=== PATIENT | female | born 1955 | race Caucasian/White ===

== ENCOUNTER → 2017-01-04 | Outpatient (CLI) | payer MEDICAID | END | disposition home or self-care (01) | LOC: LABWHC1 13:09 | PROVIDERS: ATTEND Family Medicine | DX: E03.9 Hypothyroidism, unspecified (principal) | CPT/HCPCS: 36415; 84439; 84443; 84481 ==

== ENCOUNTER → 2017-02-10 | Outpatient (CLI) | payer MEDICAID ==
[2017-02-10 12:16] LABS: Cholesterol 225 mg/dL (<200); Glucose 131 mg/dL (74-99); HDL Cholesterol 43 mg/dL (40-60); Triglycerides 191 mg/dL (<150)
[2017-02-10 13:04] LABS: Hepatitis C Virus IgG Index 0.01
[2017-02-10 13:10] LABS: Hepatitis C Virus IgG Ab Negative (Negative)
== END ==
LOC: LABWHC1 11:20
PROVIDERS: ATTEND Family Medicine
DX: E88.81 Metabolic syndrome and other insulin resistance (principal); Z13.9 Encounter for screening, unspecified
CPT/HCPCS: 36415; 80061; 82947; 86803

== ENCOUNTER → 2018-08-10 | Outpatient (CLI) | payer MEDICAID ==
[2018-08-10 10:05] LABS: HGB 15.3 gm/dL (11.4-16.0); MCH 30.3 pg (25.0-35.0); MCHC 33.3 g/dL (31.0-37.0); MCV 91.1 fL (80.0-100.0); Platelet Count 327 k/uL (150-450); RBC 5.05 m/uL (3.80-5.40); WBC 7.9 k/uL (3.8-10.6)
[2018-08-10 10:16] LABS: Appearance,Urine Cloudy (Clear); Bacteria,Urine Many /hpf; Bilirubin,Urine Negative (Negative); Blood,Urine Negative (Negative); Color,Urine Yellow; Glucose,Urine (UA) Negative (Negative); Ketones,Urine Negative (Negative); Leukocyte Esterase,Urine Large (Negative); Mucus,Urine Occasional /hpf; Nitrite,Urine Negative (Negative); Protein,Urine Trace (Negative); Squamous Epithelial Cell,Urine 33 /hpf (0-4); WBC,Urine 123 /hpf (0-5)
[2018-08-10 10:30] LABS: ALT 40 U/L (9-52); AST 24 U/L (14-36); Albumin 3.7 g/dL (3.5-5.0); Alkaline Phosphatase 87 U/L (38-126); Anion Gap 9 mmol/L; Blood Urea Nitrogen 15 mg/dL (7-17); Calcium 9.2 mg/dL (8.4-10.2); Carbon Dioxide 24 mmol/L (22-30); Chloride 106 mmol/L (98-107); Cholesterol 196 mg/dL (<200); Glucose 102 mg/dL (74-99); HDL Cholesterol 47 mg/dL (40-60); LDL Cholesterol,Calculated 111 mg/dL (0-99); Potassium 4.3 mmol/L (3.5-5.1); Sodium 139 mmol/L (137-145); Total Bilirubin 0.5 mg/dL (0.2-1.3); Total Protein 6.5 g/dL (6.3-8.2); Triglycerides 192 mg/dL (<150)
[2018-08-10 10:46] LABS: T4, Free (Free Thyroxine) 1.16 ng/dL (0.78-2.19)
== END ==
LOC: LABWHC1 09:18
PROVIDERS: ATTEND Family Medicine
DX: Z00.00 Encounter for general adult medical examination without abnormal findings (principal); E03.9 Hypothyroidism, unspecified
CPT/HCPCS: 36415; 80053; 80061; 81001; 84439; 84443; 84481; 85027

== ENCOUNTER → 2018-10-29 | Outpatient (CLI) | payer MEDICAID ==
[2018-10-29 16:39] LABS: ALT 40 U/L (8-44); AST 29 U/L (13-35)
== END | disposition home or self-care (01) ==
LOC: LABWHC1 10:15
PROVIDERS: ATTEND Family Medicine
DX: B35.1 Tinea unguium (principal)
CPT/HCPCS: 36415; 84450; 84460

== ENCOUNTER → 2019-01-29 | Outpatient (CLI) | payer OTHER ==
--- NOTE | 2019-01-29 11:07 | XR ---
EXAMINATION TYPE: XR knee complete LT DATE OF EXAM: 01/29/2019 CLINICAL HISTORY: Twisting injury 2 days ago with pain. TECHNIQUE: Three views of the left knee are obtained. COMPARISON: None. FINDINGS: There is no acute fracture/dislocation evident in left knee. There is moderate narrowing a nd spurring medial tibiofemoral compartment. Tibial condylar spurring is present. There is mild narro wing and spurring patellofemoral compartment. Increased density suprapatellar bursa suspicious for sm all joint effusion. IMPRESSION: There is no acute fracture or dislocation in the left knee.
== END | disposition home or self-care (01) ==
LOC: RADXRMAIN 10:35
PROVIDERS: ATTEND Emergency Medicine
DX: S83.92XA Sprain of unspecified site of left knee, initial encounter (principal)

== ENCOUNTER → 2019-02-26 | Outpatient (CLI) | payer OTHER ==
--- NOTE | 2019-02-26 22:39 | MR ---
EXAMINATION TYPE: MR knee LT wo con DATE OF EXAM: 02/26/2019 COMPARISON: Left knee x-ray January 29, 2019. HISTORY: Lt knee sprain or twisting injury a few weeks ago with persistent pain TECHNIQUE: Multiplanar, multisequence images of the knee is performed without IV contrast. FINDINGS: MEDIAL MENISCUS: Anterior horn is intact without tear. Deep aspect posterior horn shows fraying with abnormal signal consistent with full-thickness tear sagittal image 21. Medial protrusion medial menis cus is seen on coronal images. LATERAL MENISCUS: Anterior and posterior horns are intact without tear. CRUCIATE LIGAMENTS: The anterior and posterior cruciate ligaments are intact and unremarkable. COLLATERAL LIGAMENTS: The medial collateral ligament and lateral collateral ligament complex are inta ct. Mild increased fluid signal surrounds the collateral ligament. EXTENSOR MECHANISM: Visualized quadriceps and patellar tendons are intact. EFFUSION: There is small to moderate size suprapatellar joint effusion. POPLITEAL CYST: No popliteal/locke cyst. TRICOMPARTMENT SPACES: Mild/moderate tricompartment degenerative changes with joint space loss and sp urring is seen most prominent medial tibiofemoral and patellofemoral compartments. CARTILAGE: There is chondromalacia patella with thinning of articular cartilage along the inferior po sterior patellar pole. There is cartilaginous loss medial tibiofemoral compartment. BONE MARROW SIGNAL: No focal abnormal marrow signal is appreciated. OTHER: No additional significant abnormality is appreciated. IMPRESSION: 1. Full-thickness tear posterior horn of medial meniscus. 2. Mild MCL sprain. 3. Small to moderate-sized suprapatellar joint effusion. 4. Fairly moderate tricompartment osteoarthritic changes as detailed above.
== END | disposition home or self-care (01) ==
LOC: RADMRIMAIN 18:07
PROVIDERS: ATTEND Emergency Medicine
DX: S83.242A Other tear of medial meniscus, current injury, left knee, initial encounter (principal); S83.412A Sprain of medial collateral ligament of left knee, initial encounter; M17.12 Unilateral primary osteoarthritis, left knee

== ENCOUNTER → 2019-03-06 | Outpatient (CLI) | payer MEDICAID ==
[2019-03-06 12:24] LABS: Basophils # (A) 0.1 k/uL (0-0.2); Basophils % (A) 1 %; Eosinophils # (A) 0.1 k/uL (0-0.7); Eosinophils % (A) 1 %; HCT 46.6 % (34.0-46.0); HGB 15.3 gm/dL (11.4-16.0); Lymphocytes # (A) 2.1 k/uL (1.0-4.8); Lymphocytes % (A) 25 %; MCH 29.2 pg (25.0-35.0); MCHC 32.8 g/dL (31.0-37.0); MCV 88.9 fL (80.0-100.0); Mean Platelet Volume 6.9; Monocytes # (A) 0.5 k/uL (0-1.0); Monocytes % (A) 6 %; Neutrophils # (A) 5.3 k/uL (1.3-7.7); Neutrophils % (A) 64 %; Platelet Count 311 k/uL (150-450); RBC 5.24 m/uL (3.80-5.40); RDW 14.6 % (11.5-15.5); WBC 8.2 k/uL (3.8-10.6)
[2019-03-06 12:37] LABS: Potassium 4.3 mmol/L (3.5-5.1)
== END | disposition home or self-care (01) ==
LOC: LABPAT 11:09
PROVIDERS: ATTEND Orthopaedic Surgery
DX: Z01.818 Encounter for other preprocedural examination (principal); Z01.812 Encounter for preprocedural laboratory examination; M23.92 Unspecified internal derangement of left knee
CPT/HCPCS: 80051; 85025; 93005

== ENCOUNTER 2019-03-20 12:32 | Day surgery (SDC) | payer MEDICAID, OTHER ==
[2019-03-19 11:27] VITALS: BMI 42.2
--- NOTE | 2019-03-19 16:20 | HP ---
HISTORY AND PHYSICAL DATE OF SURGERY: 03/20/2019 Aura Horne is a 64-year-old patient seen with progressive left knee pain. We discussed treatment options. She elected to proceed with left knee arthroscopy. Consent was obtained. PAST MEDICAL HISTORY: Hypothyroidism, hypertension. PAST SURGICAL HISTORY: 1. Tubal ligation. 2. Cholecystectomy. 3. Hysterectomy. 4. Left knee arthroscopy. DAILY MEDICATIONS: Hydrochlorothiazide, levothyroxine. ALLERGIES: PENICILLIN, LATEX. SOCIAL HISTORY: She denies tobacco use. PHYSICAL EVALUATION OF THE LEFT KNEE: Range of motion is 0 to 130 degrees. Mild effusion present. Tenderness along medial joint line. Positive medial Gianni's. Ligaments stable. Hip rotation without pain. Distal neurovascular exam intact. LEFT KNEE RADIOGRAPHS: Left knee radiographs revealed moderate osteoarthritic changes. Left knee MRI revealed medial meniscal tear and osteoarthritis. IMPRESSION: 1. Internal derangement, left knee, with medial meniscal tear. 2. Left knee osteoarthritis. PLAN: Left knee arthroscopy with partial meniscectomy and debridement. MMODL / IJN: [id number] /
[~2019-03-20 12:32] MED LIST: DEXAMETHASONE SOD PHOSPHATE 10 MG/ML 1 ML VIAL IV ONE; LACTATED RINGERS 1,000 ML IV SCH; LIDOCAINE 1% 20 ML VIAL (10MG/ML) FOR IV START INTRADERMA PRN; MIDAZOLAM 2 MG/2 ML VIAL IV PRN; SCOPOLAMINE 1.5MG/72HR PATCH TRANSDERM ONE; ceFAZolin IN SWFI 2 GM/20 ML SYRINGE IVP ONE
[2019-03-20 13:07] VITALS: RESP 16
[2019-03-20] MEDS: ONDANSETRON 4 MG/2 ML VIAL IVP ONE ×2 (13:20→14:41)
[2019-03-20] MEDS ORDERED: LIDOCAINE 1% INJ 10MG/ML (20 ML MDV) ONE (13:34)
[2019-03-20] MEDS ORDERED: KETOROLAC 30 MG/ML 1 ML VIAL ONE (13:34)
[2019-03-20] MEDS ORDERED: MIDAZOLAM 2 MG/2 ML VIAL ONE (13:34)
[2019-03-20] MEDS ORDERED: fentaNYL (PF) 50 MCG/ML 2 ML AMP ONE (13:34)
[2019-03-20] MEDS ORDERED: PROPOFOL 10 MG/ML 20 ML VIAL IV ONE (13:34)
[2019-03-20] MEDS ORDERED: BUPIVACAINE-EPI 0.5%-1:200,000 10 ML VIAL INTRAARTIC ONE (13:59)
[2019-03-20 14:31] VITALS: TEMP 97.4
--- NOTE | 2019-03-20 14:35 | P.OP ---
Date of Procedure: 03/20/19 Preoperative Diagnosis: Internal derangement left knee Postoperative Diagnosis: 1. Tear medial meniscus left knee 2. Grade 4 chondromalacia medial femoral condyle left knee 3. Reactive synovitis medial, lateral and suprapatellar compartments left knee Procedure(s) Performed: 1. Arthroscopic partial medial meniscectomy left knee 2. Arthroscopic microfracture medial femoral condyle left knee 3. Arthroscopic partial synovectomy medial, lateral and suprapatellar compartments left knee Anesthesia: GETA, local Surgeon: Kiran Martínez Estimated Blood Loss (ml): 7 Pathology: none sent Condition: stable Disposition: PACU Indications for Procedure: 64-year-old patient seen with progressive left knee pain. After having treatment options discussed, she elected to proceed with arthroscopy. Operative Findings: See description of procedure Description of Procedure: Patient was taken to the operative suite. Patient underwent a general anesthetic by the department of anesthesia. Patient was given preoperative antibiotics. The left lower extremity was placed in a well-padded arthroscopic leg graves. The left leg was prepped and draped in the normal sterile orthopedic fashion. A lateral parapatellar and suprapatellar incision was made. Trochars were inserted. Arthroscopy was initiated. Suprapatellar pouch revealed diffuse thick reactive synovitis. The patellofemoral joint appeared to articulate congruently. There was grade 1/2 chondromalacia of the patella with no osteochondral tears present. The scope was guided into the medial gutter. No loose bodies or plica were identified. The scope was then guided into the medial compartment. A medial parapatellar incision was made. Trocar inserted followed by probe. There was a complex tear involving the posterior horn medial meniscus. There is a grade 4 chondromalacia involving the femoral condyle and tibial plateau as well as medial aspect. There was thick reactive synovitis anteriorly. I performed a partial medial meniscectomy down to stable tissue. I performed a partial synovectomy decompressing the thick reactive synovitis. I performed a microfracture to medial femoral condyle penetrating along with resultant bleeding at the microfracture site. The residual meniscus was stable. The residual osteochondral surface was stable. There was good decompression of synovitis. Scope and probe were then guided into the intercondylar notch. Cruciates were identified, probed and found to be stable. The scope and probe were then guided into lateral compartment. Lateral meniscus was probed and found to be stable. There was mild grade 1 chondral malacia changes lateral compartment. There was thick reactive synovitis anteriorly. I performed a partial synovectomy decompressing the reactive synovitis lateral compartment. There was good decompression of synovitis. The scope was in guided back into the suprapatellar compartment. I introduced a motorized shaver into the super patellar compartment. I debrided some piecemeal fragments of meniscus I encountered. I performed a partial synovectomy decompressing the reactive synovitis. Shaver was removed. I took one more look around the entire knee, no residual debris. Instruments were now removed from the joint. The joint was infiltrated with .25% Marcaine. Steri-Strips were applied to the portal sites. Sterile dressings were applied. The patient was placed into a ANUSHA hose. No tourniquet was utilized. The patient was awakened, transferred to a bed and taken to recovery stable satisfactory condition.
[2019-03-20] MEDS: HYDROmorphone 0.5 MG/0.5 ML SYRINGE IVP PRN ×2 (14:40→14:48)
[2019-03-20 16:04] VITALS: BP 120/75; PULSE 75
== END 2019-03-20 16:45 | disposition home or self-care (01) ==
LOC: OR 12:32
PROVIDERS: ATTEND Orthopaedic Surgery
DX: S83.242A Other tear of medial meniscus, current injury, left knee, initial encounter (principal); M94.262 Chondromalacia, left knee; M17.12 Unilateral primary osteoarthritis, left knee; M65.862 Other synovitis and tenosynovitis, left lower leg; E03.9 Hypothyroidism, unspecified; I10 Essential (primary) hypertension; Z98.51 Tubal ligation status; Z90.49 Acquired absence of other specified parts of digestive tract; Z90.710 Acquired absence of both cervix and uterus; Z79.890 Hormone replacement therapy; Z79.899 Other long term (current) drug therapy; Z88.0 Allergy status to penicillin; Z91.040 Latex allergy status; X58.XXXA Exposure to other specified factors, initial encounter
CPT/HCPCS: 29881; 29879; 29876; J2250; J1100; J2405; J2001; J3010; J1885; J2704; J1170; J0690

== ENCOUNTER → 2019-11-08 | Outpatient (CLI) | payer MEDICAID ==
[2019-11-08 09:54] LABS: HCT 48.2 % (34.0-46.0); HGB 15.6 gm/dL (11.4-16.0); MCHC 32.4 g/dL (31.0-37.0); MCV 92.6 fL (80.0-100.0); Mean Platelet Volume 7.1; Platelet Count 330 k/uL (150-450); RDW 13.1 % (11.5-15.5); WBC 9.4 k/uL (3.8-10.6)
[2019-11-08 13:42] LABS: African American GFR (CKD) 107.6 (60.0-200.0); Albumin 4.3 g/dL (3.80-4.90); Albumin/Globulin Ratio 2.26 (1.60-3.17); Anion Gap 8.2 mmol/L (4.00-12.00); BUN/Creat Ratio 22.86 Ratio (12.00-20.00); Calcium 9.2 mg/dL (8.7-10.3); Carbon Dioxide 23.8 mmol/L (21.6-31.8); Chol/HDL Ratio 3.87; Globulin 1.9 g/dL (1.6-3.3); LDL Cholesterol,Calculated 121.2 mg/dL (0.0-131.0); Non-African American GFR(CKD) 92.9 (60.0-200.0); Potassium 4.3 mmol/L (3.5-5.5); Total Bilirubin 0.5 mg/dL (0.2-1.2); Total Protein 6.2 g/dL (6.2-8.2); VLDL Calculation 27.8 mg/dL (5.00-40.00)
[2019-11-08 13:50] LABS: T4, Free (Free Thyroxine) 1.5 ng/dL (0.80-1.80)
== END | disposition home or self-care (01) ==
LOC: LABWHC1 09:25
PROVIDERS: ATTEND Family Medicine
DX: Z00.00 Encounter for general adult medical examination without abnormal findings (principal); E03.9 Hypothyroidism, unspecified
CPT/HCPCS: 36415; 80053; 80061; 84439; 84443; 84481; 85027

== ENCOUNTER → 2020-11-23 | Outpatient (CLI) | payer MEDICAID ==
[2020-11-23 19:36] LABS: HCT 47.5 % (37.2-46.3); HGB 15.1 g/dL (12.0-15.0); MCH 29.7 pg (27.0-32.0); MCHC 31.8 g/dL (32.0-37.0); MCV 93.3 fL (80.0-97.0); Mean Platelet Volume 10.1 fL (9.5-12.2); Platelet Count 346 X 10*3/uL (140-440); RBC 5.09 X 10*6/uL (4.10-5.20); RDW 12.9 % (11.5-14.5); WBC 12.02 X 10*3/uL (4.50-10.00)
[2020-11-23 20:21] LABS: African American GFR (CKD) 106.9 (60.0-200.0); Albumin 4.5 g/dL (3.80-4.90); Albumin/Globulin Ratio 2.25 (1.60-3.17); Anion Gap 13.7 mmol/L (4.00-12.00); BUN/Creat Ratio 21.43 Ratio (12.00-20.00); Calcium 9.5 mg/dL (8.7-10.3); Carbon Dioxide 24.3 mmol/L (21.6-31.8); Chol/HDL Ratio 4.43; LDL Cholesterol,Calculated 136.6 mg/dL (0.0-131.0); Non-African American GFR(CKD) 92.2 (60.0-200.0); Potassium 3.9 mmol/L (3.5-5.5); Total Bilirubin 0.5 mg/dL (0.3-1.2); Total Protein 6.5 g/dL (6.2-8.2); VLDL Calculation 38.4 mg/dL (5.00-40.00)
[2020-11-23 20:29] LABS: T4, Free (Free Thyroxine) 1.4 ng/dL (0.80-1.80)
== END | disposition home or self-care (01) ==
LOC: LABWHC1 10:03
PROVIDERS: ATTEND Family Medicine
DX: Z00.01 Encounter for general adult medical examination with abnormal findings (principal); E03.9 Hypothyroidism, unspecified
CPT/HCPCS: 36415; 80053; 80061; 84439; 84443; 84481; 85027

== ENCOUNTER 2021-03-12 12:28 | Emergency (ER) | payer MEDICAID ==
[2021-03-12 12:32] VITALS: BP 157/98; PULSE 94; RESP 18; TEMP 97.7
--- NOTE | 2021-03-12 12:52 | ED ---
ENT HPI - General Chief complaint: Dental/Oral Stated complaint: Tooth pain/facial swelling Time Seen by Provider: 03/12/21 12:33 Source: patient Mode of arrival: ambulatory Limitations: no limitations - History of Present Illness Initial comments: Patient is a 66-year-old female presenting to the emergency Department with complaints of right sided dental pain and some mild facial swelling that started increasing over the past 2 days. Patient states she had a fracture and her tooth last week, she did see her dentist about 4 days ago, they did try to fix the tooth and started her on azithromycin. Patient states she has one day left of this antibiotic but today she noticed the swelling started to return and the pain is starting to increase. She has been taking ibuprofen and Tylenol threes for her discomfort. She states she has a follow-up appointment with her dentist in 3 days which they plan to do a root canal. Patient denies any fevers or chills, she still been eating and drinking as normal. No nausea or vomiting. She has no further complaints at this time. - Related Data Home Medications Medication Instructions Recorded Confirmed Levothyroxine Sodium [Levoxyl] 112 mcg PO QAM 03/19/19 03/20/19 Naproxen Sodium [Aleve] 220 mg PO Q12HR PRN 03/19/19 03/20/19 Terbinafine [LamISIL] 250 mg PO DAILY 03/19/19 03/20/19 hydroCHLOROthiazide 25 mg PO DAILY 03/19/19 03/20/19 Previous Rx's Medication Instructions Recorded Hydrocodone/Acetaminophen [[place] 1 each PO Q6HR PRN #15 tab 03/20/19 5-325] Clindamycin [Cleocin] 450 mg PO Q8H 5 Days #45 capsule 03/12/21 Allergies Allergy/AdvReac Type Severity Reaction Status Date / Time latex Allergy Rash/Hives Verified 03/12/21 12:32 Penicillins Allergy Rash/Hives Verified 03/12/21 12:32 hydromorphone [From Dilaudid] AdvReac Nausea & Verified 03/12/21 12:32 Vomiting Review of Systems ROS Statement: Those systems with pertinent positive or pertinent negative responses have been documented in the HPI. ROS Other: All systems not noted in ROS Statement are negative. Past Medical History Past Medical History: Thyroid Disorder History of Any Multi-Drug Resistant Organisms: None Reported Past Surgical History: Cholecystectomy, Hysterectomy, Tubal Ligation Past Psychological History: No Psychological Hx Reported Smoking Status: Never smoker Past Alcohol Use History: Occasional Past Drug Use History: None Reported General Exam - General Exam Comments Initial Comments: GENERAL: Patient is well-developed and well-nourished. Patient is nontoxic and in no acute distress. HEAD: Atraumatic, normocephalic. EYES: Pupils equal round and reactive to light, extraocular movements intact, sclera anicteric, conjunctiva are normal. Eyelids were unremarkable. ENT: TMs normal, nares patent, oropharynx clear without exudates. Moist mucous membranes. Patient has recent dental work on tooth #19, there is no obvious dental abscess, she has some mild left-sided facial swelling, does not drop below the jawline. No difficulty in swallowing. NECK: Normal range of motion, supple without lymphadenopathy or JVD. LUNGS: Unlabored respirations. Breath sounds clear to auscultation bilaterally and equal. No wheezes rales or rhonchi. HEART: Regular rate and rhythm without murmurs, rubs or gallops. ABDOMEN: Soft, nontender, normoactive bowel sounds. No guarding, no rebound. No masses appreciated. : Deferred MUSCULOSKELETAL: Normal extremities with adequate strength and normal range of motion, no pitting or edema. No clubbing or cyanosis. NEUROLOGICAL: Patient is alert and oriented x 3. Motor and sensory are also intact. Cranial nerves II through XII grossly intact. Symmetrical smile. Normal speech, normal gait. PSYCH: Normal mood, normal affect. SKIN: Warm, Dry, normal turgor, no rashes or lesions noted. Limitations: no limitations Course Vital Signs 03/12/21 12:29 Temperature 97.7 F Pulse Rate 94 Respiratory 18 Rate Blood Pressure 157/98 O2 Sat by Pulse 97 Oximetry Medical Decision Making - Medical Decision Making Patient is a 66-year-old female here with an increase in left-sided dental pain and mild facial swelling that started about a week ago. She saw her dentist 4 days ago, they performed some dental work and start her on azithromycin. It did improve and then worsened today. No fevers, her vitals are stable, no visible dental abscess seen. Patient will be switched to clindamycin as she has a penicillin ALLERGY. She does have a follow-up with her dentist in 3 days. She is stable for discharge. Return parameters were discussed with her and she verbalized understanding. Case discussed with Dr. Graham. Disposition Clinical Impression: Fracture of tooth, Toothache, Left facial swelling Disposition: HOME SELF-CARE Condition: Stable Instructions (If sedation given, give patient instructions): Dental Abscess (ED) Additional Instructions: Please return to the Emergency Department if symptoms worsen or any other concerns. Recommend discontinuing azithromycin, switch to clindamycin as prescribed. May continue with ibuprofen/Tylenol threes as already prescribed. May use ice to the left side of the face as well. Follow-up with your dentist as discussed on Sunday. Prescriptions: Clindamycin [Cleocin] 450 mg PO Q8H 5 Days #45 capsule Is patient prescribed a controlled substance at d/c from ED?: No Referrals: Carter Cardenas MD [Primary Care Provider] - 1-2 days Time of Disposition: 12:51
== END 2021-03-12 12:57 | disposition home or self-care (01) ==
LOC: EC 12:28
DX: S02.5XXA Fracture of tooth (traumatic), initial encounter for closed fracture (principal); Z88.0 Allergy status to penicillin; X58.XXXA Exposure to other specified factors, initial encounter
CPT/HCPCS: 99282

== ENCOUNTER → 2021-06-06 | Outpatient (CLI) | payer MEDICAID | END | disposition home or self-care (01) | LOC: LABWHC1 14:10 | PROVIDERS: ATTEND Emergency Medicine | DX: Z20.822 Contact with and (suspected) exposure to COVID-19 (principal) | CPT/HCPCS: 87635 ==

== ENCOUNTER → 2021-10-05 | Outpatient (CLI) | payer MEDICAID | END | disposition home or self-care (01) | LOC: LABWHC1 07:58 | PROVIDERS: ATTEND Orthopaedic Surgery | DX: Z01.812 Encounter for preprocedural laboratory examination (principal); Z22.322 Carrier or suspected carrier of Methicillin resistant Staphylococcus aureus; M17.12 Unilateral primary osteoarthritis, left knee | CPT/HCPCS: 87070 ==

== ENCOUNTER → 2021-10-21 | Outpatient (CLI) | payer MEDICAID ==
[2021-10-21 09:18] LABS: INR 0.9 (<1.2); Prothrombin Time 10.2 sec (9.0-12.0)
[2021-10-21 09:56] LABS: Appearance,Urine Cloudy (Clear); Bacteria,Urine Few /hpf; Bilirubin,Urine Negative (Negative); Blood,Urine Negative (Negative); Color,Urine Yellow; Glucose,Urine (UA) 3+ (Negative); Ketones,Urine Negative (Negative); Leukocyte Esterase,Urine Large (Negative); Mucus,Urine Occasional /hpf; Nitrite,Urine Negative (Negative); Protein,Urine Negative (Negative); RBC,Urine 1 /hpf (0-5); Specific Gravity,Urine 1.023 (1.001-1.035); Squamous Epithelial Cell,Urine 9 /hpf (0-4); Urobilinogen,Urine <2.0 mg/dL (<2.0); WBC,Urine 52 /hpf (0-5)
[2021-10-21 10:41] LABS: African American GFR (CKD) 90.3 (60.0-200.0); Albumin 4.1 g/dL (3.8-4.9); Albumin/Globulin Ratio 1.78 (1.60-3.17); Anion Gap 14.9 mmol/L (10.00-18.00); BUN/Creat Ratio 20.38 Ratio (12.00-20.00); Blood Urea Nitrogen 16.3 mg/dL (9.0-27.0); Calcium 9.1 mg/dL (8.7-10.3); Carbon Dioxide 22.1 mmol/L (20.0-27.5); Globulin 2.3 g/dL (1.6-3.3); Non-African American GFR(CKD) 77.9 (60.0-200.0); Potassium 3.8 mmol/L (3.5-5.5); Total Bilirubin 0.4 mg/dL (0.30-1.20); Total Protein 6.4 g/dL (6.2-8.2)
[2021-10-21 10:45] LABS: Basophils # (A) 0.08 X 10*3/uL (0.00-0.10); Basophils % (A) 0.8 %; Eosinophils # (A) 0.09 X 10*3/uL (0.04-0.35); Eosinophils % (A) 0.9 %; HCT 47.7 % (37.2-46.3); HGB 15.2 g/dL (12.0-15.0); Lymphocytes # (A) 2.43 X 10*3/uL (0.90-5.00); Lymphocytes % (A) 25.6 %; MCH 29.7 pg (27.0-32.0); MCHC 31.9 g/dL (32.0-37.0); MCV 93.3 fL (80.0-97.0); Mean Platelet Volume 9.7 fL (9.5-12.2); Monocytes # (A) 0.79 X 10*3/uL (0.20-1.00); Monocytes % (A) 8.3 %; Neutrophils # (A) 6.09 X 10*3/uL (1.80-7.70); Neutrophils % (A) 64.1 %; Platelet Count 322 X 10*3/uL (140-440); RBC 5.11 X 10*6/uL (4.10-5.20); RDW 12.8 % (11.5-14.5); WBC 9.51 X 10*3/uL (4.50-10.00)
== END | disposition home or self-care (01) ==
LOC: LABWHC1 08:16
PROVIDERS: ATTEND Family Medicine
DX: Z01.812 Encounter for preprocedural laboratory examination (principal)
CPT/HCPCS: 36415; 80053; 81001; 85025; 85610; 85730

== ENCOUNTER 2021-10-31 08:25 | Day surgery (SDC) | payer MEDICAID ==
[2021-10-24 09:48] VITALS: BMI 43.7
--- NOTE | 2021-10-30 11:42 | HP ---
HISTORY AND PHYSICAL DATE OF SURGERY: 10/31/2021 Aura Horne is a 66-year-old patient seen with symptomatic left knee osteoarthritis. We discussed options for treatment. She elected to proceed with left total knee arthroplasty. Consent was obtained. Medical clearance was provided by Dr. Cardenas. PAST MEDICAL HISTORY: Hypothyroidism. PAST SURGICAL HISTORY: Tubal ligation, cholecystectomy, hysterectomy, left knee arthroscopy. DAILY MEDICATIONS: Hydrochlorothiazide and levothyroxine. ALLERGIES: PENICILLIN, LATEX. SOCIAL HISTORY: She denies tobacco use. PHYSICAL EVALUATION OF THE LEFT KNEE: Range of motion is negative 2/3 to 120. Mild effusion. Tenderness along the medial joint line. Crepitus, medial and patellofemoral compartments with range of motion. Pain with patellofemoral compression. Ligaments stable. Hip rotation without pain. Distal neurovascular exam intact. Radiographs of the left knee reveal severe osteoarthritic changes. IMPRESSION: 1. Left knee osteoarthritis. 2. Hypertension. 3. Hypothyroidism. PLAN: Left total knee arthroplasty. MMODL / IJN: [id number] /
[~2021-10-31 08:25] MED LIST changes: +ACETAMINOPHEN TAB 500 MG TAB PO PRN; -DEXAMETHASONE SOD PHOSPHATE 10 MG/ML 1 ML VIAL IV ONE; -LACTATED RINGERS 1,000 ML IV SCH; -LIDOCAINE 1% 20 ML VIAL (10MG/ML) FOR IV START INTRADERMA PRN; +MELOXICAM 7.5 MG TAB PO PRN; -MIDAZOLAM 2 MG/2 ML VIAL IV PRN; -SCOPOLAMINE 1.5MG/72HR PATCH TRANSDERM ONE; +TRANEXAMIC ACID 1,000 MG in SODIUM CHLORIDE 0.9% 100 ML IVPB PRN; -ceFAZolin IN SWFI 2 GM/20 ML SYRINGE IVP ONE
[2021-10-31] MEDS ORDERED: MIDAZOLAM 2 MG/2 ML VIAL IV PRN (08:31)
[2021-10-31] MEDS ORDERED: ONDANSETRON 4 MG/2 ML VIAL IVP ONE ×2 (08:31→09:17)
[2021-10-31] MEDS ORDERED: LIDOCAINE 1% (10MG/ML) FOR IV START INTRADERMA PRN (08:31)
[2021-10-31] MEDS ORDERED: LACTATED RINGERS 1,000 ML IV SCH (08:31)
[2021-10-31] MEDS ORDERED: DEXAMETHASONE SOD PHOSPHATE 4 MG/ML 1 ML VIAL IV ONE (08:31)
[2021-10-31] MEDS ORDERED: LACTATED RINGERS 1,000 ML IV ONE ×3 (09:15→12:00)
[2021-10-31] MEDS ORDERED: DEXAMETHASONE SOD PHOSPHATE 4 MG/ML 1 ML VIAL IVP ONE (09:18)
[2021-10-31 09:20] LABS: Glucose,Whole Blood 136 mg/dL (75-99)
[2021-10-31 09:34] LABS: Appearance,Urine Clear (Clear); Bacteria,Urine Rare /hpf; Bilirubin,Urine Negative (Negative); Blood,Urine Negative (Negative); Color,Urine Yellow; Glucose,Urine (UA) Negative (Negative); Hyaline Casts,Urine 1 /lpf (0-2); Ketones,Urine Negative (Negative); Leukocyte Esterase,Urine Large (Negative); Mucus,Urine Few /hpf; Nitrite,Urine Negative (Negative); PH, Urine 6.5 (5.0-8.0); Protein,Urine Trace (Negative); RBC,Urine 1 /hpf (0-5); Specific Gravity,Urine 1.022 (1.001-1.035); Squamous Epithelial Cell,Urine 3 /hpf (0-4); Urobilinogen,Urine <2.0 mg/dL (<2.0); WBC,Urine 16 /hpf (0-5)
[2021-10-31] MEDS ORDERED: MIDAZOLAM 2 MG/2 ML VIAL IVP ONE (09:37)
[2021-10-31] MEDS: fentaNYL (PF) 50 MCG/ML 2 ML AMP IVP ONE ×4 (09:37→13:28)
[2021-10-31] MEDS ORDERED: PHENYLEPHRINE-0.9% NACL SYG 1,000 MCG/10 ML SYRINGE ONE (09:59)
[2021-10-31] MEDS ORDERED: SODIUM CHLORIDE 0.9% (PF) 10 ML VIAL ONE (09:59)
[2021-10-31] MEDS ORDERED: SUCCINYLCHOLINE CHLORIDE 100 MG/5 ML SYR IV ONE (09:59)
[2021-10-31] MEDS ORDERED: fentaNYL (PF) 50 MCG/ML 2 ML AMP ONE (09:59)
[2021-10-31] MEDS ORDERED: TRANEXAMIC ACID 1,000 MG/10 ML VIAL ONE (09:59)
[2021-10-31] MEDS ORDERED: ROPIVACAINE 5 MG/ML 30 ML VIAL ONE (09:59)
[2021-10-31] MEDS ORDERED: SODIUM CHLORIDE 0.9% 100 ML BAG ONE (09:59)
[2021-10-31] MEDS ORDERED: DEXAMETHASONE SOD PHOSPHATE 4 MG/ML 1 ML VIAL ONE (09:59)
[2021-10-31] MEDS ORDERED: ROCURONIUM 10 MG/ML (5 ML VIAL) IV ONE (09:59)
[2021-10-31] MEDS ORDERED: NEOSTIGMINE 1 MG/ML 10 ML VIAL ONE (09:59)
[2021-10-31] MEDS ORDERED: LIDOCAINE 1% INJ 10MG/ML (20 ML MDV) ONE (09:59)
[2021-10-31] MEDS ORDERED: GLYCOPYRROLATE 0.2 MG/ML 2 ML VIAL ONE (09:59)
[2021-10-31] MEDS ORDERED: PROPOFOL 10 MG/ML 20 ML VIAL IV ONE (09:59)
[2021-10-31] MEDS ORDERED: ceFAZolin 1,000 MG in SODIUM CHLORIDE 0.9% 1,000 ML IRRIGATION ONE (10:31)
[2021-10-31] MEDS ORDERED: ROPIVACAINE 0.2%-NS ON-Q PUMP 1,090 MG, EMPTY PAIN BALL 1 EACH MISCELLANE PRN (10:59)
--- NOTE | 2021-10-31 11:02 | P.ANPRN ---
Procedure Note - Anesthesia - Nerve Block Performed Left Adductor Canal Infusion Time Out Performed: Yes Date of Procedure: 10/31/21 Procedure Start Time: 09:36 Procedure Stop Time: 09:47 Location of Patient: PreOp Indication: Requested by Surgeon Specifically requested for management of pain by DrFrederick: Kiran Martínez Sedation Type: Sedate with meaningful contact maintained Preparation: Sterile Prep, Sterile Dressing Position: Supine Catheter: Indwelling Needle Types: Pajunk Needle Gauge: 18 Ultrasound used to visualize needle placement: Yes Ultrasound used to observe medication spread: Yes Injectate: 0.5% Ropivacaine (see comment for volume) (15 ml + 0.9% NS 10 ml) Blood Aspirated: No Pain Paresthesia on Injection Noted: No Resistance on Injection: Normal Image Stored and Saved: Yes Events: Uneventful and Well Tolerated
--- NOTE | 2021-10-31 11:04 | P.ANPRN ---
Procedure Note - Anesthesia - Nerve Block Performed Left iPack Single Time Out Performed: Yes Date of Procedure: 10/31/21 Procedure Start Time: 09:48 Procedure Stop Time: 09:53 Location of Patient: PreOp Indication: Requested by Surgeon Specifically requested for management of pain by DrFrederick: Kiran Martínez Sedation Type: Sedate with meaningful contact maintained Preparation: Sterile Prep Position: Right Lateral Needle Types: Pajunk Needle Gauge: 21 Ultrasound used to visualize needle placement: Yes Ultrasound used to observe medication spread: Yes Injectate: 0.5% Ropivacaine (see comment for volume) (15 ml +10 ml 0.9% NS + 4mg Dexamethason) Blood Aspirated: No Pain Paresthesia on Injection Noted: No Resistance on Injection: Normal Image Stored and Saved: Yes Events: Uneventful and Well Tolerated
[2021-10-31] MEDS ORDERED: HYDROcodone/APAP 7.5-325MG 1 EACH TAB PO PRN (12:00)
[2021-10-31] MEDS ORDERED: NALOXONE 0.4 MG/ML 1 ML VIAL IV PRN (12:00)
[2021-10-31] MEDS ORDERED: HYDROmorphone 0.5 MG/0.5 ML SYRINGE IVP PRN (12:00)
[2021-10-31] MEDS ORDERED: HYDROmorphone 0.2 MG/1 ML SYRINGE IVP PRN (12:00)
[2021-10-31] MEDS ORDERED: ONDANSETRON 4 MG/2 ML VIAL IVP PRN (12:00)
[2021-10-31] MEDS ORDERED: HYDROmorphone 1 MG/ML 1 ML SYRINGE IVP PRN (12:00)
[2021-10-31] MEDS ORDERED: HYDROcodone/APAP 5-325MG 1 EACH TAB PO PRN (12:00)
--- NOTE | 2021-10-31 12:00 | P.OP ---
Date of Procedure: 10/31/21 Preoperative Diagnosis: Left knee osteoarthritis Postoperative Diagnosis: Left knee osteoarthritis Procedure(s) Performed: Left total knee arthroplasty Implants: 1. Aesculap size 4 narrow cruciate retaining cemented femur 2. Aesculap T2+ cemented tibial baseplate 3. Aesculap T2 10 mm polyethylene tibial insert 4. Aesculap size 3 cemented polyethylene patella Anesthesia: GETA, regional (Adductor canal catheter, Ipack block) Surgeon: Kiran Martínez Universal Grinder Set Up Operator #1: Cj Coats Estimated Blood Loss (ml): 55 Pathology: other (bone) Condition: stable Disposition: PACU Indications for Procedure: 66-year-old patient seen with symptomatic left knee osteoarthritis. After having treatment options discussed, he elected to proceed with total knee arthroplasty Operative Findings: see description of procedure Description of Procedure: Patient was taken to the operative suite after having an adductor canal catheter placed by the department of anesthesia. Patient underwent a general anesthetic by the department of anesthesia. Patient was given preoperative IV intake antibiotics and TXA. A well-padded tourniquet was placed about the left lower extremity. The lower extremity was then prepped and draped in the normal sterile orthopedic fashion. The extremity was elevated, a tourniquet was insufflated to 300. A standard anterior incision was made sharply through skin. Dissection was taken down through the subcutaneous soft tissues down to the extensor mechanism. A medial arthrotomy was performed, patella was everted and knee was flexed. There was advanced osteoarthritis noted. I introduced my distal intramedullary femoral drill. I then introduced the distal femoral cutting jig. Cj VO secured the cutting jig with 2 pins. I held retractors in position while Cj VO performed the distal femoral resection through the guide area we now removed her distal femoral cutting guide. We now placed our 4-in-1 femoral cutting block and positioned and it was secured with 2 pins by Cj VO while I held the block in position. The distal femoral finishing was now completed. A proximal tibial cutting guide was positioned. I held the guide in the appropriate position with both hands whle Cj VO inserted stabilizing pins into the guide. Proximal tibial cut was made. We now placed a trial femoral component into position, along with an appropriate size tibial tray and insert. We now took the knee through range of motion and had full extension good flexion and good overall soft tissue balance noted. The patella was everted and stabilized with 2 towel clips held by Cj VO while I performed a flush with patellar quad tendon utilizing a fresh sawblade. We templated the patella, appropriate drill holes were made. An appropriate trial patella was positioned, knee was taken through full range of motion with the patella tracking very nicely. The trial patella was removed. Drill holes were made through the femoral component. All trial components were removed after marking off the appropriate rotation of the tibia. Retractors were now positioned along the proximal tibia. An appropriate keel punch was made with the appropriate size tibial guide by myself on Cj VO assisted by holding retractors. At this point appropriate size implants were chosen and opened. The joint was irrigated copiously with pulse lavage mechanical irrigation. The posterior capsule was infiltrated with local analgesic. The wound was irrigated with pulse lavage mechanical irrigation. We mixed antibiotic methylmethacrylate. We placed the knee into flexion. We placed multiple retractors assisted by Cj VO to expose the proximal tibia. Once the methyl methacrylate was ready, the tibial component was cemented into place removing any excess methylmethacrylate form by both myself and Brandan VO. The femoral component was cemented into place removing the removing any excess methylmethacrylate performed by both myself and Brandan VO. We then inserted the appropriate size polyethylene tibial insert. We made sure that it was locked into position. We took the knee into full extension, and then back in a flexion making sure we had removed any excess methylmethacrylate. The patellar component was then cemented down and secured with clamp. Excess methylmethacrylate removed. We kept the knee in full extension, patellar clamp in position until methylmethacrylate had hardened. Once it had hardened the patellar clamp was removed. The knee was taken through full range of motion. T he patella tracked nicely. There was good soft tissue balancing. The tourniquet was now released. Additional hemostasis was achieved via electrocautery. A second gram of TXA was given. The wound again was irrigated with pulse lavage mechanical irrigation. The superficial soft tissues were infiltrated local analgesic. The extensor mechanism was repaired with Ethibond. We checked the repair with range of motion and it was stable. The subcutaneous soft tissues were repaired with Vicryl in layers. The skin was approximated with pernio/Dermabond. Sterile dressings were applied followed by loose web roll and Jorge bandage. The patient was transferred to a bed, and taken to recovery in stable and satisfactory condition. Cj VO assisted with this complex procedure.
[2021-10-31 12:17] VITALS: TEMP 97.5
--- NOTE | 2021-10-31 13:09 | XR ---
EXAMINATION TYPE: XR knee limited LT DATE OF EXAM: 10/31/2021 COMPARISON: NONE TECHNIQUE: Two views submitted HISTORY: Post op FINDINGS: There is a prosthetic knee in near anatomic alignment. There is soft tissue edema and emphysema. IMPRESSION: 1. Postoperative change. Appears in near-anatomic alignment
[2021-10-31] MEDS ORDERED: fentaNYL (PF) 50 MCG/ML 2 ML AMP IVP ONE (13:15)
[2021-10-31 16:02] VITALS: BP 122/65; PULSE 82; RESP 16
== END 2021-10-31 14:13 | disposition home health service (06) ==
LOC: OR 08:25
PROVIDERS: ATTEND Orthopaedic Surgery
DX: M17.12 Unilateral primary osteoarthritis, left knee (principal); Z88.0 Allergy status to penicillin; Z79.890 Hormone replacement therapy; Z79.899 Other long term (current) drug therapy; Z20.822 Contact with and (suspected) exposure to COVID-19; E03.9 Hypothyroidism, unspecified; E78.00 Pure hypercholesterolemia, unspecified; K44.9 Diaphragmatic hernia without obstruction or gangrene; E88.81 Metabolic syndrome and other insulin resistance; E66.01 Morbid (severe) obesity due to excess calories; Z68.41 Body mass index [BMI] 40.0-44.9, adult; G47.30 Sleep apnea, unspecified; Z90.710 Acquired absence of both cervix and uterus; Z90.49 Acquired absence of other specified parts of digestive tract; G43.909 Migraine, unspecified, not intractable, without status migrainosus; K21.9 Gastro-esophageal reflux disease without esophagitis; Z81.8 Family history of other mental and behavioral disorders; Z82.3 Family history of stroke; Z82.49 Family history of ischemic heart disease and other diseases of the circulatory system; Z83.42 Family history of familial hypercholesterolemia; Z82.69 Family history of other diseases of the musculoskeletal system and connective tissue; Z91.040 Latex allergy status; Z88.5 Allergy status to narcotic agent; Z91.048 Other nonmedicinal substance allergy status
CPT/HCPCS: 97110; 97161; 64999; 64448; 76942; 81001; 88300; 87635; 73560; 27447; C1776; C1713 ×2; J2250; J1100; J2710; J0690 ×2; J2405; J2001; J3010; J2795 ×2; J2370; J0330; J2704

== ENCOUNTER 2021-12-04 09:25 | Observation (INO) | payer MEDICAID ==
[2021-12-04] MEDS ORDERED: ASPIRIN 81 MG PO STA (09:44)
[2021-12-04] MEDS ORDERED: NITROGLYCERIN OINT 1 INCH/GM PACKET TOPICAL STA (09:44)
--- NOTE | 2021-12-04 09:58 | ED ---
General Adult HPI - General Chief complaint: Chest Pain Stated complaint: Chest Pain Time Seen by Provider: 12/04/21 09:30 Source: patient, RN notes reviewed, old records reviewed Mode of arrival: ambulatory Limitations: no limitations - History of Present Illness Initial comments: This is a 66-year-old female who has a past medical history significant for diabetes. Patient states her father did have some heart problems. Patient comes in today because since early last evening she started having chest pain and that has not subsided. Patient describes it as a pressure. Patient denies any shortness of breath patient denies any radiation of the pain. Patient denies any diaphoretic episode. Patient denies any nausea. Patient denies any abdominal pain patient denies any headache patient denies numbness weakness. Patient denies lightheadedness or dizziness. Patient states she was diagnosed with COVID approximately 2 weeks ago. Patient also states early October she had left knee surgery and her left lower leg is been swollen since. Patient also complains of left calf pain. - Related Data Home Medications Medication Instructions Recorded Confirmed Levothyroxine Sodium [Levoxyl] 112 mcg PO DAILY 03/19/19 12/04/21 hydroCHLOROthiazide 25 mg PO DAILY 03/19/19 12/04/21 metFORMIN HCL [metFORMIN HCL ER] 500 mg PO DAILY 10/31/21 12/04/21 Fluticasone Nasal [place] [Flonase 1 spray EA NOSTRIL DAILY PRN 12/04/21 12/04/21 Nasal [place]] Magnesium 200 mg PO DAILY 12/04/21 12/04/21 Previous Rx's Medication Instructions Recorded Aspirin [Adult Low Dose Aspirin EC] 81 mg PO BID #60 tab 10/31/21 Allergies Allergy/AdvReac Type Severity Reaction Status Date / Time nickel Allergy Unknown Itching, Verified 12/04/21 10:12 green skin latex Allergy Rash/Hives Verified 12/04/21 10:12 Penicillins Allergy Rash/Hives Verified 12/04/21 10:12 perfume AdvReac Severe Migraine Verified 12/04/21 10:12 hydromorphone [From Dilaudid] AdvReac Nausea & Verified 12/04/21 10:12 Vomiting Review of Systems ROS Statement: Those systems with pertinent positive or pertinent negative responses have been documented in the HPI. ROS Other: All systems not noted in ROS Statement are negative. Past Medical History Past Medical History: Diabetes Mellitus, Thyroid Disorder History of Any Multi-Drug Resistant Organisms: None Reported Past Surgical History: Cholecystectomy, Hysterectomy, Joint Replacement, Tubal Ligation Additional Past Surgical History / Comment(s): L knee Past Psychological History: No Psychological Hx Reported Smoking Status: Never smoker Past Alcohol Use History: Occasional Past Drug Use History: None Reported General Exam - General Exam Comments Initial Comments: GENERAL: Patient is well-developed and well-nourished. Patient is nontoxic and well- hydrated and is in mild distress. ENT: Neck is soft and supple. No significant lymphadenopathy is noted. Oropharynx is clear. Moist mucous membranes. Neck has full range of motion without eliciting any pain. EYES: The sclera were anicteric and conjunctiva were pink and moist. Extraocular mo vements were intact and pupils were equal round and reactive to light. Eyelids were unremarkable. PULMONARY: Unlabored respirations. Good breath sounds bilaterally. No audible rales rhonchi or wheezing was noted. CARDIOVASCULAR: There is a regular rate and rhythm without any murmurs gallops or rubs. ABDOMEN: Soft and nontender with normal bowel sounds. SKIN: Skin is clear with no lesions or rashes and otherwise unremarkable. NEUROLOGIC: Patient is alert and oriented x3. Cranial nerves II through XII are grossly intact. Motor and sensory are also intact. Normal speech, volume and content. Symmetrical smile. MUSCULOSKELETAL: Normal extremities with adequate strength and full range of motion. LYMPHATICS: No significant lymphadenopathy is noted PSYCHIATRIC: Normal psychiatric evaluation. Limitations: no limitations Course Vital Signs 12/04/21 09:27 Temperature 98 F Pulse Rate 77 Respiratory 18 Rate Blood Pressure 155/72 O2 Sat by Pulse 98 Oximetry Medical Decision Making - Medical Decision Making EKG shows sinus rhythm at 81 bpm RI interval is 176 dresses 90 QT interval 350 QTC is 388 per patient's EKG shows no ST segment elevation or depression. Chest x-ray shows no acute abnormality. Patient states the Nitropaste helped relieve the pain but is not completely gone. I spoke with some physicians agreed to admit the patient to the patient wrote admitting orders. - Lab Data Result diagrams: 12/04/21 09:53 12/04/21 09:53 Lab Results 12/04/21 12/04/21 12/04/21 Range/Units 09:53 09:53 09:53 WBC 8.7 (3.8-10.6) k/uL RBC 5.08 (3.80-5.40) m/uL Hgb 15.0 (11.4-16.0) gm/dL Hct 46.5 H (34.0-46.0) % MCV 91.5 (80.0-100.0) fL MCH 29.5 (25.0-35.0) pg MCHC 32.2 (31.0-37.0) g/dL RDW 14.1 (11.5-15.5) % Plt Count 354 (150-450) k/uL MPV 7.5 Neutrophils % 64 % Lymphocytes % 26 % Monocytes % 6 % Eosinophils % 2 % Basophils % 1 % Neutrophils # 5.5 (1.3-7.7) k/uL Lymphocytes # 2.2 (1.0-4.8) k/uL Monocytes # 0.5 (0-1.0) k/uL Eosinophils # 0.2 (0-0.7) k/uL Basophils # 0.0 (0-0.2) k/uL PT 10.1 (9.0-12.0) sec INR 0.9 (<1.2) APTT 22.9 (22.0-30.0) sec Sodium 137 (137-145) mmol/L Potassium 4.4 (3.5-5.1) mmol/L Chloride 104 (98-107) mmol/L Carbon Dioxide 23 (22-30) mmol/L Anion Gap 10 mmol/L BUN 13 (7-17) mg/dL Creatinine 0.61 (0.52-1.04) mg/dL Est GFR (CKD-EPI)AfAm >90 (>60 ml/min/1.73 sqM) Est GFR (CKD-EPI)NonAf >90 (>60 ml/min/1.73 sqM) Glucose 142 H (74-99) mg/dL Calcium 9.5 (8.4-10.2) mg/dL Magnesium 2.0 (1.6-2.3) mg/dL Total Bilirubin 0.7 (0.2-1.3) mg/dL AST 27 (14-36) U/L ALT 23 (4-34) U/L Alkaline Phosphatase 94 (38-126) U/L Troponin I (0.000-0.034) ng/mL Total Protein 7.2 (6.3-8.2) g/dL Albumin 4.1 (3.5-5.0) g/dL Coronavirus (PCR) (Not Detectd) 12/04/21 12/04/21 Range/Units 09:53 10:16 WBC (3.8-10.6) k/uL RBC (3.80-5.40) m/uL Hgb (11.4-16.0) gm/dL Hct (34.0-46.0) % MCV (80.0-100.0) fL MCH (25.0-35.0) pg MCHC (31.0-37.0) g/dL RDW (11.5-15.5) % Plt Count (150-450) k/uL MPV Neutrophils % % Lymphocytes % % Monocytes % % Eosinophils % % Basophils % % Neutrophils # (1.3-7.7) k/uL Lymphocytes # (1.0-4.8) k/uL Monocytes # (0-1.0) k/uL Eosinophils # (0-0.7) k/uL Basophils # (0-0.2) k/uL PT (9.0-12.0) sec INR (<1.2) APTT (22.0-30.0) sec Sodium (137-145) mmol/L Potassium (3.5-5.1) mmol/L Chloride (98-107) mmol/L Carbon Dioxide (22-30) mmol/L Anion Gap mmol/L BUN (7-17) mg/dL Creatinine (0.52-1.04) mg/dL Est GFR (CKD-EPI)AfAm (>60 ml/min/1.73 sqM) Est GFR (CKD-EPI)NonAf (>60 ml/min/1.73 sqM) Glucose (74-99) mg/dL Calcium (8.4-10.2) mg/dL Magnesium (1.6-2.3) mg/dL Total Bilirubin (0.2-1.3) mg/dL AST (14-36) U/L ALT (4-34) U/L Alkaline Phosphatase (38-126) U/L Troponin I <0.012 (0.000-0.034) ng/mL Total Protein (6.3-8.2) g/dL Albumin (3.5-5.0) g/dL Coronavirus (PCR) Not Detected (Not Detectd) Disposition Clinical Impression: Chest pain Disposition: ADMITTED IP TO THIS [facility] Referrals: Carter Cardenas MD [Primary Care Provider] - 1-2 days Time of Disposition: 12:00
--- NOTE | 2021-12-04 10:06 | XR ---
EXAMINATION TYPE: XR chest 2V DATE OF EXAM: 12/04/2021 COMPARISON: None INDICATION: Chest pain, recent Covid TECHNIQUE: Frontal and lateral views of the chest are obtained. FINDINGS: The heart size is normal. The pulmonary vasculature is normal. The lungs are clear. IMPRESSION: 1. No acute pulmonary process.
[2021-12-04 10:15] LABS: ALT 23 U/L (4-34); African American GFR (CKD) >90 (>60 ml/min/1.73 sqM); Albumin 4.1 g/dL (3.5-5.0); Anion Gap 10 mmol/L; Blood Urea Nitrogen 13 mg/dL (7-17); Calcium 9.5 mg/dL (8.4-10.2); Carbon Dioxide 23 mmol/L (22-30); Chloride 104 mmol/L (98-107); Glucose 142 mg/dL (74-99); Non-African American GFR(CKD) >90 (>60 ml/min/1.73 sqM); Sodium 137 mmol/L (137-145); Total Bilirubin 0.7 mg/dL (0.2-1.3); Total Protein 7.2 g/dL (6.3-8.2)
[2021-12-04 10:19] LABS: AST 27 U/L (14-36); Alkaline Phosphatase 94 U/L (38-126); Potassium 4.4 mmol/L (3.5-5.1)
[2021-12-04 10:36] LABS: INR 0.9 (<1.2); Partial Thromboplastin Time 22.9 sec (22.0-30.0); Prothrombin Time 10.1 sec (9.0-12.0)
[2021-12-04 10:47] LABS: Basophils % (A) 1 %; Eosinophils # (A) 0.2 k/uL (0-0.7); Eosinophils % (A) 2 %; HCT 46.5 % (34.0-46.0); Lymphocytes # (A) 2.2 k/uL (1.0-4.8); Lymphocytes % (A) 26 %; MCH 29.5 pg (25.0-35.0); MCHC 32.2 g/dL (31.0-37.0); MCV 91.5 fL (80.0-100.0); Mean Platelet Volume 7.5; Monocytes # (A) 0.5 k/uL (0-1.0); Monocytes % (A) 6 %; Neutrophils # (A) 5.5 k/uL (1.3-7.7); Neutrophils % (A) 64 %; Platelet Count 354 k/uL (150-450); RBC 5.08 m/uL (3.80-5.40); RDW 14.1 % (11.5-15.5); WBC 8.7 k/uL (3.8-10.6)
--- NOTE | 2021-12-04 11:08 | US ---
EXAMINATION TYPE: US venous doppler duplex LE LT DATE OF EXAM: 12/04/2021 10:59 AM COMPARISON: NONE CLINICAL HISTORY: Swollen leg. Left leg pain and swelling, s/p left total knee SIDE PERFORMED: Left TECHNIQUE: The lower extremity deep venous system is examined utilizing real time linear array sonog ebenezer with graded compression, doppler sonography and color-flow sonography. VESSELS IMAGED: Common Femoral Vein Deep Femoral Vein Greater Saphenous Vein * Femoral Vein Popliteal Vein Small Saphenous Vein * Proximal Calf Veins (* superficial vessels) Left Leg: Negative for DVT IMPRESSION: 1. Left lower extremity ultrasound negative for deep venous thrombosis.
[2021-12-04] MEDS ORDERED: NITROGLYCERIN SL TABS 0.4 MG TAB SUBLINGUAL PRN (12:00)
[2021-12-04] MEDS ORDERED: LORazepam 0.5 MG TAB PO PRN (13:31)
[2021-12-04] MEDS ORDERED: ONDANSETRON 4 MG/2 ML VIAL IVP PRN (13:31)
[2021-12-04] MEDS ORDERED: NALOXONE 0.4 MG/ML 1 ML VIAL IV PRN (13:31)
[2021-12-04] MEDS ORDERED: FLUTICASONE 50MCG/SPRAY NASAL 16GM EA NOSTRIL PRN (13:36)
--- NOTE | 2021-12-04 13:50 | P.HPIM ---
History of Present Illness H&P Date: 12/04/21 Chief Complaint: Chestpain This is a 66-year-old female who has a past medical history significant for type 2 diabetes mellitus diabetes, hypertension and hypothyroidism. Patient states her father did have some heart problems. Patient comes in today because since early last evening she started having chest pain and that has not subsided. Patient describes it as a pressure. Patient denies any shortness of breath patient denies any radiation of the pain. Patient denies any diaphoretic episode. Patient denies any nausea. Patient denies any abdominal pain patient denies any headache patient denies numbness weakness. Patient denies lightheadedness or dizziness. Patient states she was diagnosed with COVID approximately 2 weeks ago. Patient also states early October she had left knee surgery and her left lower leg is been swollen since. Patient also complains of left calf pain. Patient had left knee surgery October 31. Recently been diagnosed with COVID 19 infection to weeks ago. The patient vaccinated. Otherwise All 14 review of systems evaluated and all negative except for above. Past Medical History Past Medical History: Diabetes Mellitus, Hypertension, Thyroid Disorder History of Any Multi-Drug Resistant Organisms: None Reported Past Surgical History: Cholecystectomy, Hysterectomy, Joint Replacement, Tubal Ligation Additional Past Surgical History / Comment(s): L knee Past Psychological History: No Psychological Hx Reported Smoking Status: Never smoker Past Alcohol Use History: Occasional Past Drug Use History: None Reported Medications and Allergies Home Medications Medication Instructions Recorded Confirmed Type Levothyroxine Sodium [Levoxyl] 112 mcg PO DAILY 03/19/19 12/04/21 History hydroCHLOROthiazide 25 mg PO DAILY 03/19/19 12/04/21 History Aspirin [Adult Low Dose Aspirin EC] 81 mg PO BID #60 tab 10/31/21 12/04/21 Rx metFORMIN HCL [metFORMIN HCL ER] 500 mg PO DAILY 10/31/21 12/04/21 History Fluticasone Nasal [place] [Flonase 1 spray EA NOSTRIL DAILY PRN 12/04/21 12/04/21 History Nasal [place]] Magnesium 200 mg PO DAILY 12/04/21 12/04/21 History Allergies Allergy/AdvReac Type Severity Reaction Status Date / Time nickel Allergy Unknown Itching, Verified 12/04/21 10:12 green skin latex Allergy Rash/Hives Verified 12/04/21 10:12 Penicillins Allergy Rash/Hives Verified 12/04/21 10:12 perfume AdvReac Severe Migraine Verified 12/04/21 10:12 hydromorphone [From Dilaudid] AdvReac Nausea & Verified 12/04/21 10:12 Vomiting Physical Exam Vitals: Vital Signs Temp Pulse Resp BP Pulse Ox 12/04/21 09:27 98 F 77 18 155/72 98 Intake and Output 12/03/21 12/04/21 12/04/21 22:59 06:59 14:59 Other: Weight 113.398 kg General: non toxic, no distress, appears at stated age Derm: warm, dry Head: atraumatic, normocephalic, symmetric Eyes: EOMI, no lid lag, anicteric sclera Mouth: no lip lesion, mucus membranes moist Cardiovascular: S1S2 reg, no murmur, positive posterior tibial pulse bilateral, Lungs: CTA bilateral, no rhonchi, no rales , no accessory muscle use Abdominal: soft, nontender to palpation, no guarding, no appreciable organomegaly Ext: no gross muscle atrophy, no edema, no contractures Neuro: CN II-XI grossly intact, no focal neuro deficits Psych: Alert, oriented, appropriate affect Results CBC & Chem 7: 12/04/21 09:53 12/04/21 09:53 Labs: Abnormal Lab Results - Last 24 Hours (Table) 12/04/21 12/04/21 Range/Units 09:53 09:53 Hct 46.5 H (34.0-46.0) % Glucose 142 H (74-99) mg/dL Thrombosis Risk Factor Assmnt - DVT/VTE Prophylaxis DVT/VTE Prophylaxis: Pharmacologic Prophylaxis ordered Assessment and Plan Assessment: Assessment and plan: #Chest pain -Need to rule out acute coronary syndrome -EKG sinus rhythm with nonspecific ST segment and T-wave changes -Pain is reproducible by palpation but also relieved by nitro paste -Trend troponin, check echocardiogram -Etiology consulted -Check A1c and lipid panel -Since patient had COVID-19 infection to weeks ago and also had recent left knee surgery will order CT of the chest to rule out PE #Hypertension -Resume hydrochlorothiazide #Type 2 diabetes mellitus -Hold metformin -Sliding scale insulin -Diabetic diet -Check A1c #Hypothyroidism -Check TSH -Resume levothyroxine #Morbid obesity BMI 42 #DVT prophylaxis with Lovenox
--- NOTE | 2021-12-04 15:17 | CT ---
EXAMINATION TYPE: CT chest angio for PE DATE OF EXAM: 12/04/2021 COMPARISON: None HISTORY: Chest pain, denies cardiac hx CT DLP: 582.7 mGycm Automated exposure control for dose reduction was used. CONTRAST: Performed with IV Contrast, patient injected with 100 mL of Isovue 370. There are 3-D postprocess images. The lungs are clear of consolidation. There is no pleural effusion. There is no mediastinal adenopath y. There are no hilar masses. Heart size is normal. There is no pericardial effusion. There is normal contrast opacification of the pulmonary arteries. There are no filling defects. The thoracic spine is intact. There is some mild spur formation in the lower thoracic spine. There is no compression fracture. Sternum is intact. The upper abdominal soft tissues are intact. IMPRESSION: Negative exam. No evidence of pulmonary embolism.
[2021-12-04 18:07] LABS: Glucose,Whole Blood 163 mg/dL (75-99)
[2021-12-04] MEDS: ENOXAPARIN 40 MG/0.4 ML SYRINGE SQ SCH (18:18)
[2021-12-04] MEDS: NITROGLYCERIN OINT 1 INCH/GM PACKET TOPICAL SCH (18:20)
[2021-12-04] MEDS: INSULIN ASPART (NovoLOG) 100 UNIT/ML VIAL SQ SCH (18:20)
[2021-12-04] MEDS: ASPIRIN 81 MG PO SCH (18:21)
[2021-12-04] MEDS: ACETAMINOPHEN TAB 325 MG TAB PO PRN (18:21)
[2021-12-05] MEDS: ACETAMINOPHEN TAB 325 MG TAB PO PRN (03:04)
[2021-12-05] MEDS: NITROGLYCERIN OINT 1 INCH/GM PACKET TOPICAL SCH (03:06)
[2021-12-05 08:55] LABS: Glucose,Whole Blood 157 mg/dL (75-99)
[2021-12-05] MEDS ORDERED: ASPIRIN 325 MG TAB PO SCH (09:00)
[2021-12-05] MEDS ORDERED: DOBUTamine DRIP for NUC MED 500 MG in DEXTROSE/WATER 1 250ML.BAG IV PRN (09:39)
--- NOTE | 2021-12-05 09:45 | P.CRDCN ---
History of Present Illness Consult date: 12/05/21 History of present illness: The patient presents with symptoms of chest discomfort. She has a history of diabetes and hypertension. On Sunday she had persistence chest discomfort until Sunday with some epigastric discomfort. She came into the emergency room for further evaluation. She is pain-free at this time. She had no associated symptoms, no radiation or dyspnea. 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 She denies any palpitations or syncope, no PND or orthopnea. She has mild edema that proceeded her surgery on her knee. She has no prior cardiac history or cardiac workup. She has no history of diabetes or smoking. Her medication are home include metformin, HCTZ, magnesium, Synthroid, aspirin. Her troponin are normal and her EKG showed no acute ST segment changes Review of system: Respiratory: No history of asthma, bronchitis or recent cough. GI: No nausea, vomiting. No history of peptic ulcer disease. No recent GI bleed. : No hematuria or dysuria. Nervous System: No stroke or seizure. Physical examination: 66-year-old female, alert oriented no apparent distress, blood pressure 141/71 with a heart rate in the 80s Head: Normocephalic. Eyes: Sclerae nonicteric. Neck: Good carotid upstroke, no bruit, no jugular venous distention. Lungs: Clear to auscultation. Heart: Regular rate and rhythm, S1-S2, no S3, no rub., Systolic ejection murmur at the base Abdomen: Soft nontender, positive bowel sounds no organomegaly. Extremities: 1+ edema, intact distal pulses. EKG was sinus mechanism normal axis and intervals with no acute changes Cholesterol 218, LDL 145, troponin less than 0.012. BUN 13, creatinine 0.61, hemoglobin A1c 7.8 Impression: 1. Chest discomfort, atypical for ischemic heart disease probably GI in origin 2. History of hypertension 3. History of diabetes 4. Hyperlipidemia 5. Recent total knee arthroplasty Plan: 1. Add statin 2. Obtain an echocardiogram with Doppler 3. Proceed with dobutamine stress echocardiogram 4. If there is no evidence of stress-induced ischemia no further cardiac workup is needed 5. Thank you for this consult we will follow with you Past Medical History Past Medical History: Diabetes Mellitus, Hypertension, Thyroid Disorder History of Any Multi-Drug Resistant Organisms: None Reported Past Surgical History: Cholecystectomy, Hysterectomy, Joint Replacement, Tubal Ligation Additional Past Surgical History / Comment(s): L knee Past Psychological History: No Psychological Hx Reported Smoking Status: Never smoker Past Alcohol Use History: Occasional Past Drug Use History: None Reported Medications and Allergies Home Medications Medication Instructions Recorded Confirmed Type Levothyroxine Sodium [Levoxyl] 112 mcg PO DAILY 03/19/19 12/04/21 History hydroCHLOROthiazide 25 mg PO DAILY 03/19/19 12/04/21 History Aspirin [Adult Low Dose Aspirin EC] 81 mg PO BID #60 tab 10/31/21 12/04/21 Rx metFORMIN HCL [metFORMIN HCL ER] 500 mg PO DAILY 10/31/21 12/04/21 History Fluticasone Nasal [place] [Flonase 1 spray EA NOSTRIL DAILY PRN 12/04/21 12/04/21 History Nasal [place]] Magnesium 200 mg PO DAILY 12/04/21 12/04/21 History Allergies Allergy/AdvReac Type Severity Reaction Status Date / Time nickel Allergy Unknown Itching, Verified 12/04/21 10:12 green skin latex Allergy Rash/Hives Verified 12/04/21 10:12 Penicillins Allergy Rash/Hives Verified 12/04/21 10:12 perfume AdvReac Severe Migraine Verified 12/04/21 10:12 hydromorphone [From Dilaudid] AdvReac Nausea & Verified 12/04/21 10:12 Vomiting Physical Exam Vitals: Vital Signs Pulse Resp BP Pulse Ox 12/05/21 04:25 84 16 12/05/21 02:38 92 17 97 12/05/21 00:00 81 16 141/71 98 12/04/21 21:57 93 17 96 12/04/21 18:22 80 18 136/76 98 12/04/21 16:31 78 18 142/70 98 Results 12/04/21 09:53 12/04/21 09:53 Cardiac Enzymes 12/04/21 12/04/21 12/04/21 Range/Units 09:53 09:53 13:11 AST 27 (14-36) U/L Troponin I <0.012 <0.012 (0.000-0.034) ng/mL 12/04/21 Range/Units Unknown AST (14-36) U/L Troponin I <0.012 (0.000-0.034) ng/mL Coagulation 12/04/21 Range/Units 09:53 PT 10.1 (9.0-12.0) sec APTT 22.9 (22.0-30.0) sec Lipids 12/05/21 Range/Units 05:28 Triglycerides 147.00 (0.00-149.00) mg/dL Cholesterol 218.00 H (0.00-200.00) mg/dL HDL Cholesterol 43.60 (40.00-60.00) mg/dL Cholesterol/HDL Ratio 5.00 Ratio CBC 12/04/21 Range/Units 09:53 WBC 8.7 (3.8-10.6) k/uL RBC 5.08 (3.80-5.40) m/uL Hgb 15.0 (11.4-16.0) gm/dL Hct 46.5 H (34.0-46.0) % Plt Count 354 (150-450) k/uL Comprehensive Metabolic Panel 12/04/21 Range/Units 09:53 Sodium 137 (137-145) mmol/L Potassium 4.4 (3.5-5.1) mmol/L Chloride 104 (98-107) mmol/L Carbon Dioxide 23 (22-30) mmol/L BUN 13 (7-17) mg/dL Creatinine 0.61 (0.52-1.04) mg/dL Glucose 142 H (74-99) mg/dL Calcium 9.5 (8.4-10.2) mg/dL AST 27 (14-36) U/L ALT 23 (4-34) U/L Alkaline Phosphatase 94 (38-126) U/L Total Protein 7.2 (6.3-8.2) g/dL Albumin 4.1 (3.5-5.0) g/dL Current Medications Generic Name Dose Route Start Last Admin Trade Name Freq PRN Reason Stop Dose Admin Acetaminophen 650 mg 12/04/21 13:31 12/05/21 03:04 Acetaminophen Tab 325 Mg Tab PO 650 mg Q6HR PRN Administration Mild Pain or Fever > 100.5 Aspirin 81 mg 12/04/21 21:00 12/04/21 18:21 Aspirin 81 Mg PO 81 mg BID OSEAS Administration Enoxaparin Sodium 40 mg 12/04/21 13:45 12/04/21 18:18 Enoxaparin 40 Mg/0.4 Ml Syringe SQ 40 mg DAILY [facility] Administration Fluticasone Propionate 1 spray 12/04/21 13:36 Fluticasone 50mcg/[place] Nasal 16gm EA NOSTRIL DAILY PRN Allergy Symptoms Hydrochlorothiazide 25 mg 12/05/21 09:00 Hydrochlorothiazide 25 Mg Tab PO DAILY [facility] Insulin Aspart 0 unit 12/04/21 17:30 12/04/21 18:20 Insulin Aspart (Novolog) 100 Unit/Ml Vial SQ 100 unit AC-TID [facility] Administration Protocol Levothyroxine Sodium 112 mcg 12/05/21 06:30 Levothyroxine 112 Mcg Tab PO DAILY@0630 [facility] Lorazepam 0.5 mg 12/04/21 13:31 Lorazepam 0.5 Mg Tab PO Q6HR PRN Anxiety Magnesium Oxide 400 mg 12/05/21 09:00 Magnesium Oxide 400 Mg Tab PO DAILY [facility] Naloxone HCl 0.2 mg 12/04/21 13:31 Naloxone 0.4 Mg/Ml 1 Ml Vial IV Q2M PRN Opioid Reversal Nitroglycerin 0.4 mg 12/04/21 12:00 Nitroglycerin Sl Tabs 0.4 Mg Tab SUBLINGUAL Q5M PRN Chest Pain Nitroglycerin 1 inch 12/04/21 18:00 12/05/21 03:06 Nitroglycerin Oint 1 Inch/Gm Packet TOPICAL 1 inch Q6HR [facility] Administration Ondansetron HCl 4 mg 12/04/21 13:31 Ondansetron 4 Mg/2 Ml Vial IVP Q8HR PRN Nausea And Vomiting 12/04/21 09:53 12/04/21 09:53
[2021-12-05] MEDS: ATORVASTATIN 40 MG TAB PO SCH (10:05)
[2021-12-05] MEDS: ASPIRIN 81 MG PO SCH ×2 (10:05→23:18)
[2021-12-05] MEDS: ENOXAPARIN 40 MG/0.4 ML SYRINGE SQ SCH (10:05)
[2021-12-05] MEDS: hydroCHLOROthiazide 25 MG TAB PO SCH (10:05)
[2021-12-05] MEDS: LEVOTHYROXINE 112 MCG TAB PO SCH (10:05)
[2021-12-05] MEDS: MAGNESIUM OXIDE 400 MG TAB PO SCH (10:05)
--- NOTE | 2021-12-05 12:44 | ECHOF ---
Referral Reason: MEASUREMENTS -------- HEIGHT: 162.6 cm WEIGHT: 113.4 kg BP: 141/71 RVIDd: 2.9 cm (< 3.3) IVSd: 1.3 cm (0.6 - 1.1) LVIDd: 2.9 cm (3.9 - 5.3) LVPWd: 1.2 cm (0.6 - 1.1) IVSs: 1.5 cm LVIDs: 1.9 cm LVPWs: 1.6 cm Ao Diam: 3.0 cm (2.0 - 3.7) AV Cusp: 1.5 cm (1.5 - 2.6) LA Diam: 2.2 cm (2.7 - 3.8) MV E Keegan: 0.73 m/s MV DecT: 154 ms MV A Keegan: 0.99 m/s MV E/A Ratio: 0.74 AV maxP.49 mmHg AV meanP.73 mmHg RAP: 5.00 mmHg RVSP: 9.71 mmHg FINDINGS -------- Sinus rhythm. This was a technically difficult study with suboptimal views. The left ventricular size is normal. There is mild concentric left ventricular hypertrophy. Overa ll left ventricular systolic function is normal with, an EF between 55 - 60 %. The right ventricle is normal in size. The left atrial size is normal. The right atrial size is normal. Lumason used There is mild aortic valve sclerosis. Peak/mean gradient across the Aortic Valve is 12.49mmHg / 7.7 3mmHg. The mitral valve is normal. Mild mitral regurgitation is present. The tricuspid valve appears structurally normal. Mild tricuspid regurgitation present. Right vent ricular systolic pressure is normal at < 35 mmHg. The pulmonic valve was not well visualized. The aortic root size is normal. IVC Not well visulized. There is no pericardial effusion. CONCLUSIONS -------- 1. This was a technically difficult study with suboptimal views. 2. There is mild concentric left ventricular hypertrophy. 3. Overall left ventricular systolic function is normal with, an EF between 55 - 60 %. 4. There is mild aortic valve sclerosis. 5. Peak/mean gradient across the Aortic Valve is 12.49mmHg / 7.73mmHg. 6. Mild mitral regurgitation is present. 7. Mild tricuspid regurgitation present. 8. There is no pericardial effusion. [employer] DEVELOPER: Johanny Peoples RDCS
[2021-12-05 13:24] LABS: Glucose,Whole Blood 130 mg/dL (75-99)
[2021-12-05] MEDS: INSULIN ASPART (NovoLOG) 100 UNIT/ML VIAL SQ SCH ×2 (15:25→17:27)
[2021-12-05 17:10] LABS: Glucose,Whole Blood 163 mg/dL (75-99)
--- NOTE | 2021-12-05 17:54 | P.PN ---
Subjective Progress Note Date: 12/05/21 Chief Complaint: Chestpain This is a 66-year-old female who has a past medical history significant for type 2 diabetes mellitus diabetes, hypertension and hypothyroidism. Patient states her father did have some heart problems. Patient comes in today because since early last evening she started having chest pain and that has not subsided. Patient describes it as a pressure. Patient denies any shortness of breath patient denies any radiation of the pain. Patient denies any diaphoretic episode. Patient denies any nausea. Patient denies any abdominal pain patient denies any headache patient denies numbness weakness. Patient denies lightheadedness or dizziness. Patient states she was diagnosed with COVID approximately 2 weeks ago. Patient also states early October she had left knee surgery and her left lower leg is been swollen since. Patient also complains of left calf pain. Patient had left knee surgery October 31. Recently been diagnosed with COVID 19 infection to weeks ago. The patient vaccinated. interval history: Patient was seen and examined at the bedside. She denies any chest pain or shortness of breath. Stress test was rescheduled for tomorrow. Objective - Vital Signs Vital signs: Vital Signs Temp 98.6 F 12/05/21 11:01 Pulse 95 12/05/21 11:01 Resp 16 12/05/21 11:01 BP 111/69 12/05/21 11:01 Pulse Ox 98 12/05/21 11:01 Intake & Output 12/04/21 12/05/21 12/05/21 18:59 06:59 18:59 Weight 113.398 kg 113.398 kg - Exam General: [non toxic], [no distress], [appears at stated age] Derm: [warm], [dry] Head: [atraumatic], [normocephalic], [symmetric] Eyes: [EOMI], [no lid lag], [anicteric sclera] Mouth: [no lip lesion], [mucus membranes moist] Cardiovascular: [S1S2 reg], [no murmur], [positive posterior tibial pulse bilateral], Lungs: [CTA bilateral], [no rhonchi, no rales] , [no accessory muscle use] Abdominal: [soft], [ nontender to palpation], [no guarding], [no appreciable organomegaly] Ext: [no gross muscle atrophy], [no edema], [no contractures] Neuro: [ CN II-XI grossly intact], [no focal neuro deficits] Psych: [Alert], [oriented], [appropriate affect] - Labs CBC & Chem 7: 12/04/21 09:53 12/04/21 09:53 Labs: Abnormal Lab Results - Last 24 Hours (Table) 12/04/21 12/04/21 12/05/21 Range/Units 09:53 18:04 05:28 POC Glucose (mg/dL) 163 H (75-99) mg/dL Hemoglobin A1c 7.8 H (0.0-6.0) % Cholesterol 218.00 H (0.00-200.00) mg/dL LDL Cholesterol, Calc 145.0 H (0.0-131.0) mg/dL 12/05/21 12/05/21 12/05/21 Range/Units 08:53 13:17 17:08 POC Glucose (mg/dL) 157 H 130 H 163 H (75-99) mg/dL Hemoglobin A1c (0.0-6.0) % Cholesterol (0.00-200.00) mg/dL LDL Cholesterol, Calc (0.0-131.0) mg/dL Assessment and Plan Assessment: Assessment and plan: #Chest pain -acute coronary syndrome has been ruled out -Echo reviewed. -Stress test in the morning -EKG sinus rhythm with nonspecific ST segment and T-wave changes -Pain is reproducible by palpation but also relieved by nitro paste -Trend troponin, check echocardiogram -Etiology consulted -A1c 7.8, ldl 145 -computed tomography scan of the chest, negative for PE #Hypertension -Resume hydrochlorothiazide #Type 2 diabetes mellitus -Hold metformin -Sliding scale insulin -Diabetic diet #Hypothyroidism -normal TSH -Resume levothyroxine #Morbid obesity BMI 42 #DVT prophylaxis with Lovenox
[2021-12-06] MEDS: NITROGLYCERIN OINT 1 INCH/GM PACKET TOPICAL SCH (00:17)
[2021-12-06] MEDS: LEVOTHYROXINE 112 MCG TAB PO SCH (06:01)
[2021-12-06] MEDS: ACETAMINOPHEN TAB 325 MG TAB PO PRN (06:07)
[2021-12-06] MEDS ORDERED: DOBUTamine DRIP for NUC MED 500 MG in DEXTROSE/WATER 1 250ML.BAG IV PRN (07:00)
[2021-12-06 07:21] LABS: Glucose,Whole Blood 163 mg/dL (75-99)
[2021-12-06 07:25] VITALS: BP 115/66; PULSE 80; RESP 16; TEMP 98.2
[2021-12-06] MEDS: INSULIN ASPART (NovoLOG) 100 UNIT/ML VIAL SQ SCH ×2 (08:26→13:49)
[2021-12-06] MEDS: ATORVASTATIN 40 MG TAB PO SCH (08:28)
[2021-12-06] MEDS: MAGNESIUM OXIDE 400 MG TAB PO SCH (08:28)
[2021-12-06] MEDS: hydroCHLOROthiazide 25 MG TAB PO SCH (08:28)
[2021-12-06] MEDS: ASPIRIN 81 MG PO SCH (08:28)
[2021-12-06] MEDS: ENOXAPARIN 40 MG/0.4 ML SYRINGE SQ SCH (08:28)
[2021-12-06] MEDS ORDERED: DOBUTamine DRIP for NUC MED 500 MG/250 ML BAG IV ONE (10:30)
--- NOTE | 2021-12-06 10:50 | P.PN ---
Subjective Progress Note Date: 12/06/21 HISTORY OF PRESENT ILLNESS: The patient presents with symptoms of chest discomfort. She has a history of diabetes and hypertension. On Sunday she had persistence chest discomfort until Sunday with some epigastric discomfort. She came into the emergency room for further evaluation. She is pain-free at this time. She had no associated symptoms, no radiation or dyspnea. 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 She denies any palpitations or syncope, no PND or orthopnea. She has mild edema that proceeded her surgery on her knee. She has no prior cardiac history or cardiac workup. She has no history of diabetes or smoking. Her medication are home include metformin, HCTZ, magnesium, Synthroid, aspirin. Her troponin are normal and her EKG showed no acute ST segment changes 12/06/2021 Patient examined this morning. She is sitting up in the chair. She denies any further chest pain or pressure. Denies shortness of breath. Vital signs are stable. Echocardiogram completed revealing ejection fraction 55-60%, mild mitral regurgitation, and mild tricuspid regurgitation. PHYSICAL EXAM: VITAL SIGNS: Reviewed. GENERAL: Well-developed in no acute distress. NECK: Supple. No JVD or thyromegaly LUNGS: Respirations even and unlabored. Lungs essentially clear to auscultation bilaterally. HEART: Regular rate and rhythm. S1 and S2 heard. Systolic murmur noted EXTREMITIES: Normal range of motion. No clubbing or cyanosis. Peripheral pulses intact. No lower extremity edema ASSESSMENT: 1. Chest discomfort, atypical for ischemic heart disease probably GI in origin 2. History of hypertension 3. History of diabetes 4. Hyperlipidemia 5. Recent total knee arthroplasty PLAN: Patient underwent Dobutamine stress test yesterday. However, there was technical issues with the echo machine and the patients images were unable to be retrieved She is rescheduled for another stress test today. If negative, she may be discharged home today from a cardiac standpoint Nurse practitioner note has been reviewed by physician. Signing provider agrees with the documented findings, assessment, and plan of care. Objective - Vital Signs Vital signs: Vital Signs Temp 98.2 F 12/06/21 07:23 Pulse 80 12/06/21 08:37 Resp 16 12/06/21 08:37 BP 115/66 12/06/21 07:23 Pulse Ox 95 12/06/21 07:23 Intake & Output 12/05/21 12/06/21 12/06/21 18:59 06:59 18:59 Weight 113.398 kg 113.4 kg Other: Voiding Method Toilet Toilet # Voids 2 - Labs CBC & Chem 7: 12/04/21 09:53 12/04/21 09:53 Labs: Abnormal Lab Results - Last 24 Hours (Table) 12/05/21 12/05/21 12/06/21 Range/Units 13:17 17:08 07:14 POC Glucose (mg/dL) 130 H 163 H 163 H (75-99) mg/dL
[2021-12-06 11:47] LABS: Glucose,Whole Blood 202 mg/dL (75-99)
--- NOTE | 2021-12-06 13:40 | P.DS ---
Providers Date of admission: 12/04/21 12:02 Expected date of discharge: 12/06/21 Attending physician: Roger Cutler MD Consults: 12/04/21 13:37 Consult Physician Routine Consulting Provider: Alexandre Bell Consult Reason/Comments: chest pain Do you want consulting provider notified?: Yes Primary care physician: [facility] Course: 66-year-old female past medical history hypertension diabetes admitted to the hospital with chest pain substernal patient was evaluated by cardiology stress test was done patient was cleared to go home by cardiology patient feels okay today still have tenderness in the lower chest During the hospital stay the patient remained stable Did have a CTA of the lungs no evidence of PE Constitutional: No acute distress, conversant, pleasant Eyes: Anicteric sclerae, moist conjunctiva, no lid-lag PERRLA ENMT: NC/AT Oropharynx clear, no erythema, exudates Neck: Supple, FROM, no masses, or JVD No carotid bruits No thyromegaly Lungs: Clear to auscultation Clear to percussion Normal respiratory effort, no accessory muscle use Cardiovascular: Heart regular in rate and rhythm, No murmurs, gallops, or rubs No peripheral edema Abdominal: Soft Nontender, no guarding, rebound or rigidity Abdomen moving with respiration Normoactive bowel sounds No hepatomegaly, No splenomegaly No palpable mass No abdominal wall hernia noted Skin: Normal temperature, tone, texture, turgor No induration No subcutaneous nodules No rash, lesions No ulcers Extremities: No digital cyanosis No clubbing Pedal pulses intact and symmetrical Radial pulses intact and symmetrical Normal gait and station No calf tenderness Psychiatric:Alert and oriented to person, place and time Appropriate affect Intact judgement Neuro: Muscles Strength 5/5 in all 4 extremities Sensation to light touch grossly present throughout Cranial nerves II-XII grossly intact No focal sensory deficits Discharge plan chest pain likely musculoskeletal in origin follow-up with cardiology and primary care as an outpatient Plan - Discharge Summary Discharge Rx Participant: No New Discharge Prescriptions: Continue Levothyroxine Sodium [Levoxyl] 112 mcg PO DAILY hydroCHLOROthiazide 25 mg PO DAILY Aspirin [Adult Low Dose Aspirin EC] 81 mg PO BID #60 tab Magnesium 200 mg PO DAILY metFORMIN HCL [metFORMIN HCL ER] 500 mg PO DAILY Fluticasone Nasal [place] [Flonase Nasal [place]] 1 spray EA NOSTRIL DAILY PRN PRN Reason: Allergy Symptoms Discharge Medication List Levothyroxine Sodium [Levoxyl] 112 mcg PO DAILY 03/19/19 [History] hydroCHLOROthiazide 25 mg PO DAILY 03/19/19 [History] Aspirin [Adult Low Dose Aspirin EC] 81 mg PO BID #60 tab 10/31/21 [Rx] metFORMIN HCL [metFORMIN HCL ER] 500 mg PO DAILY 10/31/21 [History] Fluticasone Nasal [place] [Flonase Nasal [place]] 1 spray EA NOSTRIL DAILY PRN 12/04/21 [History] Magnesium 200 mg PO DAILY 12/04/21 [History] Follow up Appointment(s)/Referral(s): Nate Jung MD [STAFF PHYSICIAN] - 1 Week Carter Cardenas MD [Primary Care Provider] - 1-2 days Discharge Disposition: HOME SELF-CARE
--- NOTE | 2021-12-06 15:28 | ECHOS ---
STRESS ECHOCARDIOGRAM INDICATIONS: Chest pain BASELINE HEART RATE: 78 BASELINE BLOOD PRESSURE: 250 lbs. MAXIMUM HEART RATE: 137 MAXIMUM BLOOD PRESSURE: 162/67 85% MPHR: 133 100% MPHR: 156 METS: MAXIMUM STAGE REACHED: IV TOTAL EXERCISE TIME: 9:30 CLINICAL INFORMATION: Baseline rhythm is sinus mechanism, rate of 78, normal axis and intervals, poor R-wave progression. Baseline blood pressure 115/76 mmHg. Patient received infusion of dobutamine per protocol. Peak rate 137 beats per minute, which is equal to 89% of maximum predicted heart rate. Peak blood pressure 162/67 mmHg. Electrocardiograph monitoring revealed no evidence of diagnostic ischemic ST deviation. FINDINGS: Baseline echocardiogram revealed normal wall motion and left ventricular motion. At peak infusion there was normal wall motion augmentation with no hypokinesis or dyskinesis. CONCLUSION: 1. Normal electrocardiographic response to dobutamine infusion. 2. Normal stress echocardiogram with no evidence of stress-induced ischemia. MMODL / IJN: [id number] /
== END 2021-12-06 14:48 | disposition home or self-care (01) ==
LOC: EC 09:25 → 1SOBS 12:02 → 6NMEDSUR 16:32
PROVIDERS: ADMIT Hospitalist; ATTEND Hospitalist
DX: R07.89 Other chest pain (principal); M79.662 Pain in left lower leg; R60.9 Edema, unspecified; I11.9 Hypertensive heart disease without heart failure; I08.3 Combined rheumatic disorders of mitral, aortic and tricuspid valves; R10.13 Epigastric pain; E11.9 Type 2 diabetes mellitus without complications; E03.9 Hypothyroidism, unspecified; E78.5 Hyperlipidemia, unspecified; E66.01 Morbid (severe) obesity due to excess calories; Z68.41 Body mass index [BMI] 40.0-44.9, adult; Z20.822 Contact with and (suspected) exposure to COVID-19; Z79.84 Long term (current) use of oral hypoglycemic drugs; Z79.890 Hormone replacement therapy; Z79.899 Other long term (current) drug therapy; Z79.82 Long term (current) use of aspirin; Z91.040 Latex allergy status; Z88.5 Allergy status to narcotic agent; Z88.0 Allergy status to penicillin; Z91.048 Other nonmedicinal substance allergy status; Z90.49 Acquired absence of other specified parts of digestive tract; Z86.16 Personal history of COVID-19; Z98.51 Tubal ligation status; Z90.710 Acquired absence of both cervix and uterus; Z96.652 Presence of left artificial knee joint
CPT/HCPCS: 96372 ×3; 99285; 36415; 93005 ×2; 93306; 93351; 80061; 80053; 84443; 83735; 84484; 85025; 85610; 85730; 83036; 87635; 71046; 93971; 71275; G0378 ×4; J1250; J1650 ×3; Q9950 ×2; Q9967; 96374

== ENCOUNTER → 2021-12-29 | Outpatient (CLI) | payer MEDICAID ==
[2021-12-29 15:05] LABS: HCT 44.9 % (37.2-46.3); HGB 14.3 g/dL (12.0-15.0); MCH 28.6 pg (27.0-32.0); MCHC 31.8 g/dL (32.0-37.0); MCV 89.8 fL (80.0-97.0); Mean Platelet Volume 9.7 fL (9.5-12.2); NRBC Per 100 WBC 0 /100 WBCS (0.0-0.0); Platelet Count 396 X 10*3/uL (140-440); RDW 13.5 % (11.5-14.5); WBC 9.14 X 10*3/uL (4.50-10.00)
[2021-12-29 15:30] LABS: ALT 22 U/L (8-44); AST 21 U/L (13-35); African American GFR (CKD) 111.6 (60.0-200.0); Albumin/Globulin Ratio 1.38 (1.60-3.17); Alkaline Phosphatase 112 U/L (41-126); BUN/Creat Ratio 11.17 Ratio (12.00-20.00); Blood Urea Nitrogen 6.7 mg/dL (9.0-27.0); Calcium 9.2 mg/dL (8.7-10.3); Chloride 102 mmol/L (96-109); Chol/HDL Ratio 4.47 Ratio; Globulin 2.9 g/dL (1.6-3.3); Glucose 179 mg/dL (70-110); LDL Cholesterol,Calculated 111.7 mg/dL (0.0-131.0); Non-African American GFR(CKD) 96.3 (60.0-200.0); Potassium 4.2 mmol/L (3.5-5.5); Sodium 135 mmol/L (135-145); Total Protein 6.9 g/dL (6.2-8.2)
== END | disposition home or self-care (01) ==
LOC: LABWHC1 09:48
PROVIDERS: ATTEND Family Medicine
DX: Z00.01 Encounter for general adult medical examination with abnormal findings (principal); E03.9 Hypothyroidism, unspecified; E88.81 Metabolic syndrome and other insulin resistance
CPT/HCPCS: 36415; 80053; 80061; 83036; 84439; 84443; 84481; 85027

== ENCOUNTER → 2022-07-08 | Outpatient (CLI) | payer MEDICARE ==
[2022-07-08 15:55] LABS: Basophils # (A) 0.05 X 10*3/uL (0.00-0.10); Basophils % (A) 0.7 %; Eosinophils # (A) 0.09 X 10*3/uL (0.04-0.35); Eosinophils % (A) 1.2 %; HCT 45.4 % (37.2-46.3); HGB 14.7 g/dL (12.0-15.0); Immature Grans, Automated 0.3 %; Lymphocytes # (A) 1.74 X 10*3/uL (0.90-5.00); Lymphocytes % (A) 23.3 %; MCH 29.1 pg (27.0-32.0); MCHC 32.4 g/dL (32.0-37.0); MCV 89.9 fL (80.0-97.0); Mean Platelet Volume 10.4 fL (9.5-12.2); Monocytes # (A) 0.74 X 10*3/uL (0.20-1.00); Monocytes % (A) 9.9 %; NRBC Per 100 WBC 0 /100 WBCS (0.0-0.0); Neutrophils # (A) 4.83 X 10*3/uL (1.80-7.70); Neutrophils % (A) 64.6 %; Platelet Count 321 X 10*3/uL (140-440); RBC 5.05 X 10*6/uL (4.10-5.20); RDW 13.4 % (11.5-14.5); WBC 7.47 X 10*3/uL (4.50-10.00)
[2022-07-08 16:11] LABS: ALT 25 U/L (8-44); AST 19 U/L (13-35); African American GFR (CKD) 107.1 (60.0-200.0); Albumin 4.1 g/dL (3.8-4.9); Alkaline Phosphatase 122 U/L (41-126); BUN/Creat Ratio 19.04 Ratio (12.00-20.00); Blood Urea Nitrogen 12.7 mg/dL (9.0-27.0); Calcium 9.1 mg/dL (8.7-10.3); Carbon Dioxide 23.3 mmol/L (20.0-27.5); Chloride 104 mmol/L (96-109); Chol/HDL Ratio 3.82 Ratio; Globulin 2.4 g/dL (1.6-3.3); Glucose 164 mg/dL (70-110); LDL Cholesterol,Calculated 87.3 mg/dL (0.0-131.0); Non-African American GFR(CKD) 92.4 (60.0-200.0); Potassium 4.2 mmol/L (3.5-5.5); Sodium 139 mmol/L (135-145); Total Protein 6.5 g/dL (6.2-8.2)
== END | disposition home or self-care (01) ==
LOC: LABWHC1 10:34
PROVIDERS: ATTEND Family Medicine
DX: E11.65 Type 2 diabetes mellitus with hyperglycemia (principal)
CPT/HCPCS: 36415; 80053; 80061; 82043; 82570; 83036; 85025